=== PATIENT | female | born 2000 ===

== ENCOUNTER 2025-05-07 15:05 | Outpatient (AMB) | payer OTHER, SELFPAY ==
[2025-05-07 15:09] VITALS: BP 112/56; PULSE 67; O2SAT 98; BMI 33.8
--- NOTE | 2025-05-07 15:09 | AM.OFFWIN_ITS ---
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 Allergies No Known Allergies Allergy (Verified 05/07/25 15:11) HPI HPI Comments History of Present Illness Details History of Present Illness - The patient is a 25-year-old female pr esenting with a positive test x 5 at home. - She was not trying to conceive and is unsure of her last menstrual period, estimating around six weeks of gestation with last menses Mar 27. - Reports nausea and breast pain, with n o vaginal discharge, bleeding, or pain. - This is her first , and she d oes not have an DISABILITY EXAMINER. - Resides in [place] and has been advis ed to seek care. - Currently taking vitamins. Physical Exam General: Cooperative, healthy appearing, comfortable, no acute distress and well developed Orientation: Patient oriented x3 Respiratory: Normal respiratory effort and able to speak in complete sentences. Clear to auscultation bilaterally Cardiovascular: Regular rate and rhythm. Normal S1 and S2 GI: Normal to inspection. Soft to palpation and nontender. No guarding or rebound tenderness noted. Negative CVA tenderness noted. Patient was informed and verbally consented to the use of an ambient scribe for clinic note documentation during this visit. Review of Systems Const All systems reviewed & are unremarkable except as noted in HPI and below Physical Exam Vital Signs: Last Vital Signs Pulse 67 05/07/25 15:09 BP 112/56 L 05/07/25 15:09 Pulse Ox 98 05/07/25 15:09 Oxygen Delivery Method Room Air 05/07/25 15:09 BMI result Body Mass Index 33.8 Results AMB Test Urine AMB Test Urine Positive Last Edit by Amanda Gama CMA on 05/07/25 15:21 Results Reviewed Results Reviewed: Laboratory Last Values Tst Clinic Positive 05/07/25 15:19 Assessment & Plan Assessment & Plan (1) : Code(s): Z34.90 - Encounter for supervision of normal , unspecified, unspecified trimester Qualifiers: Weeks of gestation: less than 8 weeks Qualified Code(s): Z3A.01 - Less than 8 weeks gestation of Plan Most likely HCG + plan - Confirmed with a positive test result. - Advised to establish care with an DISABILITY EXAMINER for ongoing management. - Recommended continuation of vitamins. - Drink lots of fluids - Exercise daily - Eat a healthy balanced diet - follow up with PCP Orders: Orders AMB HCG Urine Test Today Z13.9 - Encounter for screening, unspecified Coding Level of Care Code Est Pt Level 3 (58619) Diagnoses Less than 8 weeks gestation of Z3A.01 Weeks of gestation: less than 8 weeks
== END 2025-05-07 15:51 | disposition home or self-care (01) ==
PROVIDERS: Visit Provider Physician Assistant Medical
DX: Z3A.01 Less than 8 weeks gestation of pregnancy (principal); Z13.9 Encounter for screening, unspecified

== ENCOUNTER → 2025-05-07 15:05 | Outpatient (BNVA) | payer OTHER, SELFPAY | PROVIDERS: Visit Provider Physician Assistant Medical | DX: Z34.91 Encounter for supervision of normal pregnancy, unspecified, first trimester (principal); Z3A.01 Less than 8 weeks gestation of pregnancy | CPT/HCPCS: 81025; 99212 ==